=== PATIENT | female | born 1985 | race Caucasian/White ===

== ENCOUNTER 2024-03-06 13:54 | Emergency (ER) | payer MEDICAID ==
[~2024-03-06] VITALS: Ht 157.4 cm; Wt 49.9 kg
[~2024-03-06 13:54] MED LIST: CIPRO500 MG PO
== END 2024-03-06 14:48 | disposition home or self-care (01) ==
LOC: ED 13:54
DX: T19.2XXA Foreign body in vulva and vagina, initial encounter (principal); W44.8XXA Other foreign body entering into or through a natural orifice, initial encounter

== ENCOUNTER 2024-09-22 15:39 | Emergency (ER) | payer MEDICAID ==
[~2024-09-22] VITALS: Ht 157.4 cm; Wt 49.9 kg
[2024-09-22 17:27] LABS: BASO % 0.4 % (0.0-1.0); EOS % 0.6 % (1.0-4.0); HEMATOCRIT 36.4 % (37.0-47.0); MEAN CELL VOLUME 87.1 fl (81.0-99.0); MEAN CORPUSCULAR HGB CONC 32.1 g/dl (33.0-37.0); MEAN PLATELET VOLUME 8.8 fl (9.6-12.3); MONO # 0.5 10*3/uL (0.1-1.0); MONO % 7.1 % (3.0-9.0); NEUT # 4.8 10*3/uL (2.3-7.9); NEUT % 68.6 % (47.0-73.0); PLATELET COUNT AUTOMATED 331 10*3/uL (130-400); RED BLOOD COUNT 4.18 10*6/uL (4.10-5.10); RED CELL DISTRI WIDTH 12.8 % (0-14.5); WHITE BLOOD COUNT 6.9 10*3/uL (4.8-10.8)
[2024-09-22 17:48] LABS: ALKALINE PHOSPHATASE 86 U/L (46-116); BUN 17 mg/dl (9-23); CHLORIDE 103 mmol/L (98-107); SGPT/ALT 9 U/L (5-49); TOTAL PROTEIN 6.9 gm/dL (6.0-8.0)
[2024-09-22] MEDS ORDERED: CLINDAMYCIN HCL 300 MG CAPSULE PO ONE (18:05)
[2024-09-22] MEDS ORDERED: CLEOCIN HCL300 MG PO (18:18)
[2024-09-22 18:25] LABS: BILIRUBIN Negative (Negative); BLOOD Trace-Lysed (Negative); CLARITY Cloudy (Clear); COLOR Yellow (Yellow); GLUCOSE Negative (Negative); KETONE Negative (Negative); LEUKO ESTERASE Negative (Negative); NITRITE Positive (Negative); UROBILINOGEN 0.2 E.U./dl (0.0-1.0)
[2024-09-22 18:36] LABS: BACTERIA 4+
== END 2024-09-22 18:47 | disposition home or self-care (01) ==
LOC: ED 15:39
PROVIDERS: Nurse Practitioner
DX: T19.2XXA Foreign body in vulva and vagina, initial encounter (principal); Z79.899 Other long term (current) drug therapy; W44.8XXA Other foreign body entering into or through a natural orifice, initial encounter

== ENCOUNTER 2024-10-11 00:40 | Emergency (ER) | payer MEDICAID ==
[~2024-10-11] VITALS: Ht 157.4 cm; Wt 51.3 kg
[~2024-10-11 00:40] MED LIST changes: +CLEOCIN HCL300 MG PO
== END 2024-10-11 01:54 | disposition home or self-care (01) ==
LOC: ED 00:40
DX: N93.9 Abnormal uterine and vaginal bleeding, unspecified (principal)